=== PATIENT | male | born 1950 | race Caucasian/White ===

== ENCOUNTER → 2025-08-10 08:12 | Outpatient (REF) | payer OTHER, SELFPAY | LOC: HWRAD 08:12 | PROVIDERS: ATTENDING PHYSICIAN General Practice; FAMILY PHYSICIAN Family Medicine | DX: R51.9 Headache, unspecified (principal); V89.2XXA Person injured in unspecified motor-vehicle accident, traffic, initial encounter | CPT/HCPCS: 70450 ==

== ENCOUNTER → 2025-10-20 12:25 | Outpatient (REF) | payer MEDICARE, OTHER, SELFPAY | LOC: RAD 12:25 | PROVIDERS: ATTENDING PHYSICIAN General Practice | DX: M54.50 Low back pain, unspecified (principal); G89.29 Other chronic pain | CPT/HCPCS: 72072; 72110 ==